=== PATIENT | female | born 1955 | race Caucasian/White ===

== ENCOUNTER 2018-11-22 11:05 | Emergency (ER) | payer OTHER ==
[2018-11-22] MEDS ORDERED: FAMOTIDINE 20 MG/2 ML VIAL IV ONE (11:37)
[2018-11-22] MEDS ORDERED: DIPHENHYDRAMINE 50 MG/ML VIAL ONE (11:37)
[2018-11-22] MEDS ORDERED: METHYLPREDNISOLONE 125 MG INJ ONE (11:37)
--- NOTE | 2018-11-22 12:15 | ER ---
Nurse's Notes [facility] Name: Galina Flannery Age: 62 yrs Sex: Female : 1955 Arrival Date: 11/22/2018 Time: 11:07 Bed 3 Private MD: Diagnosis: Insect bite of unspecified part of neck Presentation: 11/22 11:10 Presenting complaint: Patient states: pt had dental implants on Sunday and then got sv bitten by something while working in the yard on Sunday to the left side of the neck and the swelling has increased to the right side. "I'm feeling cloudy around the edges.". Transition of care: patient was not received from another setting of care. Onset: The symptoms/episode began/occurred suddenly, 2 day(s) ago. Anaphylaxis evaluation, no signs or symptoms of anaphylaxis were noted. Onset of symptoms was November 20, 2018. Risk Assessment: Do you want to hurt yourself or someone else? Patient reports no desire to harm self or others. Initial Sepsis Screen: Does the patient meet any 2 criteria? No. Patient's initial sepsis screen is negative. Does the patient have a suspected source of infection? No. Patient's initial sepsis screen is negative. Care prior to arrival: None. 11:10 Method Of Arrival: Ambulatory sv 11:10 Acuity: FLEX 2 sv Triage Assessment: 11:15 General: Appears in no apparent distress. comfortable, slender, Behavior is bp cooperative, appropriate for age, anxious. Pain: Denies pain. EENT: No deficits noted. Neuro: No deficits noted. Cardiovascular: No deficits noted. Respiratory: No deficits noted. GI: No signs and/or symptoms were reported involving the gastrointestinal system. : No signs and/or symptoms were reported regarding the genitourinary system. Derm: ERYTHEMA ON LEFT NECK AND MANDIBLE. Musculoskeletal: No deficits noted. Historical: - Allergies: 11:13 Bacitracin; sv - Home Meds: 11:13 atenolol 50 mg Oral tab [Active]; Clindamycin Oral [Active]; argon oil [Active]; sv valsartan 80 mg oral tab [Active]; - PMHx: 11:13 Hypertension; sv - Immunization history:: Adult Immunizations up to date. - Social history:: Smoking status: Patient/guardian denies using tobacco. - Ebola Screening: : No symptoms or risks identified at this time. Screenin:15 Abuse screen: Denies threats or abuse. Denies injuries from another. Nutritional bp screening: No deficits noted. Tuberculosis screening: No symptoms or risk factors identified. Fall Risk None identified. Assessment: 11:15 General: SEE TRIAGE NOTE. Respiratory: Airway is patent Respiratory effort is even, bp unlabored, Breath sounds are clear bilaterally. 12:29 Reassessment: PT D/C HOME AMBULATORY, DX WITH INSECT BITE. bp Vital Signs: 11:13 BP 200 / 101; Pulse 62; Resp 18; Temp 99; Pulse Ox 100% ; Weight 61.23 kg; Height 5 ft. sv 7 in. (170.18 cm); Pain 0/10; 11:43 BP 180 / 93; Pulse 70; Resp 16; Pulse Ox 100% ; bp 12:29 BP 140 / 79; Pulse 58; Resp 14; Temp 98; Pulse Ox 98% ; bp 11:13 Body Mass Index 21.14 (61.23 kg, 170.18 cm) sv ED Course: 11:07 Patient arrived in ED. mr 11:11 Triage completed. sv 11:13 Arm band placed on. sv 11:14 Herman Quinones, MARICRUZ is Primary Nurse. bp 11:15 Artur Massey NP is PHCP. pm1 11:15 Zhen Hatch MD is Attending Physician. pm1 11:15 Patient has correct armband on for positive identification. Bed in low position. Call bp light in reach. Side rails up X2. 11:30 Inserted saline lock: 22 gauge in right forearm, using aseptic technique. bp 12:30 No provider procedures requiring assistance completed. IV discontinued, intact, bp bleeding controlled, No redness/swelling at site. Pressure dressing applied. Administered Medications: 11:30 Drug: Pepcid 20 mg Route: PO; bp 12:31 Follow up: Response: Marked relief of symptoms bp 11:30 Drug: Benadryl 25 mg Route: IVP; Site: right forearm; bp 12:30 Follow up: Response: Marked relief of symptoms bp 11:30 Drug: SOLU-Medrol 125 mg Route: IVP; Site: right forearm; bp 12:30 Follow up: Response: Marked relief of symptoms bp Outcome: 12:14 Discharge ordered by . pm1 12:30 Discharged to home ambulatory. bp 12:30 Condition: stable 12:30 Discharge instructions given to patient, Instructed on discharge instructions, follow up and referral plans. medication usage, Demonstrated understanding of instructions, follow-up care, medications, Prescriptions given X 3. 12:36 Patient left the ED. eb Signatures: Yuly Cristobal RN RN sv Amy Leavitt mr Bryson, Artur, DEHYDRATION PLANT OPERATOR DEHYDRATION PLANT OPERATOR pm1 Herman Quinones RN RN [place] Corrections: (The following items were deleted from the chart) 11:13 11:10 Presenting complaint: Patient states: pt had dental implants on Sunday and then sv got bitten by something while working in the yard on Sunday to the left side of the neck and the swelling has increased to the right side. sv
--- NOTE | 2018-11-22 12:16 | EDPHYS ---
Physician Documentation [facility] Name: Galina Flannery Age: 62 yrs Sex: Female : 1955 Arrival Date: 11/22/2018 Time: 11:07 Bed 3 Private MD: ED Physician Zhen Hatch HPI: 11/22 11:21 This 62 yrs old Female presents to ER via Ambulatory with complaints of pm1 Allergic Reaction. 11:21 The patient presents with rash, of the neck. Onset: The symptoms/episode began/occurred pm1 2 day(s) ago. Associated signs and symptoms: Pertinent negatives: chest pain, dysphagia, fever, shortness of breath, swelling. Possible causes: Patient was working on her yard and felt a sudden stinging burn to the left side of her neck. At home the patient or guardian has treated the symptoms with nothing. Severity of symptoms: in the emergency department the symptoms are worse. The patient has not experienced similar symptoms in the past. The patient has not recently seen a physician. Historical: - Allergies: 11:13 Bacitracin; sv - Home Meds: 11:13 atenolol 50 mg Oral tab [Active]; Clindamycin Oral [Active]; argon oil [Active]; sv valsartan 80 mg oral tab [Active]; - PMHx: 11:13 Hypertension; sv - Immunization history:: Adult Immunizations up to date. - Social history:: Smoking status: Patient/guardian denies using tobacco. - Ebola Screening: : No symptoms or risks identified at this time. ROS: 11:21 Constitutional: Negative for fever, chills, and weight loss, Eyes: Negative for injury, pm1 pain, redness, and discharge, ENT: Negative for injury, pain, and discharge, Neck: Negative for injury, pain, and swelling, Cardiovascular: Negative for chest pain, palpitations, and edema, Respiratory: Negative for shortness of breath, cough, wheezing, and pleuritic chest pain, Abdomen/GI: Negative for abdominal pain, nausea, vomiting, diarrhea, and constipation, Back: Negative for injury and pain, MS/Extremity: Negative for injury and deformity. 11:21 Neuro: Negative for headache, weakness, numbness, tingling, and seizure. 11:21 Skin: Positive for rash, of the neck. Exam: 11:21 Constitutional: This is a well developed, well nourished patient who is awake, alert, pm1 and in no acute distress. Head/Face: Normocephalic, atraumatic. Eyes: Pupils equal round and reactive to light, extra-ocular motions intact. Lids and lashes normal. Conjunctiva and sclera are non-icteric and not injected. Cornea within normal limits. Periorbital areas with no swelling, redness, or edema. 11:21 Chest/axilla: Normal chest wall appearance and motion. Nontender with no deformity. No lesions are appreciated. Cardiovascular: Regular rate and rhythm with a normal S1 and S2. No gallops, murmurs, or rubs. Normal PMI, no JVD. No pulse deficits. Respiratory: Lungs have equal breath sounds bilaterally, clear to auscultation and percussion. No rales, rhonchi or wheezes noted. No increased work of breathing, no retractions or nasal flaring. Abdomen/GI: Soft, non-tender, with normal bowel sounds. No distension or tympany. No guarding or rebound. No evidence of tenderness throughout. Back: No spinal tenderness. No costovertebral tenderness. Full range of motion. 11:21 MS/ Extremity: Pulses equal, no cyanosis. Neurovascular intact. Full, normal range of motion. 11:21 Neck: External neck: is normal, rash, that is mild, of the right sternocleidomastoid and left sternocleidomastoid, urticarial appearring. 11:21 Skin: Appearance: normal except for affected area, consistent with urticaria, on the neck. 11:21 Neuro: Orientation: is normal, Motor: is normal, moves all fours. Vital Signs: 11:13 BP 200 / 101; Pulse 62; Resp 18; Temp 99; Pulse Ox 100% ; Weight 61.23 kg; Height 5 ft. sv 7 in. (170.18 cm); Pain 0/10; 11:43 BP 180 / 93; Pulse 70; Resp 16; Pulse Ox 100% ; bp 12:29 BP 140 / 79; Pulse 58; Resp 14; Temp 98; Pulse Ox 98% ; bp 11:13 Body Mass Index 21.14 (61.23 kg, 170.18 cm) sv MDM: 11:15 Patient medically screened. pm1 12:14 Data reviewed: vital signs. Data interpreted: Pulse oximetry: on room air is 100 %. pm1 Interpretation: normal. Counseling: I had a detailed discussion with the patient and/or guardian regarding: the historical points, exam findings, and any diagnostic results supporting the discharge/admit diagnosis, the need for outpatient follow up, to return to the emergency department if symptoms worsen or persist or if there are any questions or concerns that arise at home. 11/22 11:21 Order name: IV Saline Lock; Complete Time: 11:29 pm1 Administered Medications: 11:30 Drug: Pepcid 20 mg Route: PO; bp 12:31 Follow up: Response: Marked relief of symptoms bp 11:30 Drug: Benadryl 25 mg Route: IVP; Site: right forearm; bp 12:30 Follow up: Response: Marked relief of symptoms bp 11:30 Drug: SOLU-Medrol 125 mg Route: IVP; Site: right forearm; bp 12:30 Follow up: Response: Marked relief of symptoms bp Disposition: 16:04 Co-signature as Attending Physician, Zhen Hatch MD I agree with the assessment and kdr plan of care. Disposition: 11/22/18 12:14 Discharged to Home. Impression: Insect bite of unspecified part of neck. - Condition is Stable. - Discharge Instructions: Insect Bite, Rash. - Prescriptions for Benadryl 25 mg Oral Capsule - take 1 capsule by ORAL route every 6 hours As needed; 30 tablet. Pepcid 20 mg Oral Tablet - take 1 tablet by ORAL route every 12 hours for 10 days; 20 tablet. Medrol (Asher) 4 mg Oral Tablets, Dose Pack - take 1 tablet by ORAL route as directed - follow package instructions; 1 packet. - Medication Reconciliation Form, Thank You Letter, Antibiotic Education, Prescription Opioid Use, Work release form form. - Follow up: Emergency Department; When: As needed; Reason: Worsening of condition. Follow up: Private Physician; When: 2 - 3 days; Reason: Recheck today's complaints, Continuance of care, Re-evaluation by your physician. - Problem is new. - Symptoms have improved. Signatures: Yuly Cristobal RN RN sv Rittger, Kevin, MD MD kdr Marinas, Patrick, SNOW REMOVER SNOW REMOVER pm1 Herman Quinones RN RN [place] Corrections: (The following items were deleted from the chart) 12:36 12:14 11/22/2018 12:14 Discharged to Home. Impression: Insect bite of unspecified part eb of neck. Condition is Stable. Forms are Medication Reconciliation Form, Thank You Letter, Antibiotic Education, Prescription Opioid Use. Follow up: Emergency Department; When: As needed; Reason: Worsening of condition. Follow up: Private Physician; When: 2 - 3 days; Reason: Recheck today's complaints, Continuance of care, Re-evaluation by your physician. Problem is new. Symptoms have improved. pm1
== END 2018-11-22 12:36 | disposition home or self-care (01) ==
LOC: ER 11:05
DX: S10.96XA Insect bite of unspecified part of neck, initial encounter (principal); I10 Essential (primary) hypertension; W57.XXXA Bitten or stung by nonvenomous insect and other nonvenomous arthropods, initial encounter; Y93.89 Activity, other specified; Y92.007 Garden or yard of unspecified non-institutional (private) residence as the place of occurrence of the external cause; Z88.8 Allergy status to other drugs, medicaments and biological substances
CPT/HCPCS: 96375; 96374; 99283; J2930

== ENCOUNTER 2021-12-22 19:35 | Emergency (ER) | payer OTHER ==
--- OUTSIDE RECORDS SUMMARY | 2021-12-22 19:38 | XMS REPORT | Continuity of Care Document ---
:1955 Author Organization [facility] t Address [address] [place] [address] Care Team Providers Name Role Phone [place], Opal Attending Clinician Unavailable Eliecer Christensen DO Attending Clinician Sebas Cartagena MD Attending Clinician SEBAS CARTAGENA Attending Clinician Unavailable Payers Payer Name Policy Type Policy Number Effective Date Expiration Date S ource Problems Condition Condition Condition Status Onset Resolution Last Treating Co mments Source Name Details Category Date Date Treatment Clinician Date Perioral Perioral Disease Active 2011-03 Unive rs wrinkles wrinkles 0-03 ity of 00:00: [place] [id number] Medical Branch Contact Contact Disease Active Univers dermatitis dermatitis 9-20 it y of 00:00: [place] [facility] Rash Rash Disease Active Univers 9-09 ity of 00:00: [place] 00 [facility] Allergies, Adverse Reactions, Alerts Allergy Allergy Status Severity Reaction(s) Onset Inactive Treating Comm ents Source Name Type Date Date Clinician Nickel Propensi Active Rash Univers ty to 2-25 ity of adverse 00:00: [place] reaction 00 Medical Branch NICKEL DRUG Active Rash Univers INGREDI 2-25 ity of 00:00: [place] 00 [facility] Bacitrac Propensi Active Rash 2010-03 Univer s in ty to 0-21 ity of adverse 00:00: [place] reaction 00 Medical s Branch BACITRAC DRUG Active Rash 2010-03 Univers IN INGREDI 0-21 ity of 00:00: [place] 00 [facility] Branch NO KNOWN Drug Active Univers ALLERGIE Class ity of [facility] Lisinopr Adverse Active Info Not Commo n il Reaction Available [facility] Bacitrac Adverse Active Info Not Commo n in-Neomy Reaction Available Spi rit oliver-Poly - [facility] myxin [facility] Eritrean Adverse Active Info Not Commo n Reaction Available Spiri t - [facility] Sy Adverse Active Info Not Common Reaction Available [facility] Social History Social Habit Start Date Stop Date Quantity Comments Source Exposure to Not sure [facility] SARS-CoV-2 (event) [facility] Tobacco use and 2020-05-20 2020-05-20 Never used [facility] exposure 00:00:00 00:00:00 [facility] History of tobacco 2011-01-02 Smoker [facility] use 00:00:00 [facility] Sex Assigned At [birth year] [facility] 00:00:00 00:00:00 [facility] Smoking Status Start Date Stop Date Source Former smoker 2020-05-20 00:00:00 2020-05-20 00:00:00 [facility] Medications Ordered Filled Start Stop Current Ordering Indication Dosage Frequency Signature Comments Components Source Medication Medication Date Date Medication? Clinician (SIG) Name Name atenoloL 50 2019-03 Yes 50mg 50 mg. Univ ers mg tablet 04-22 ity of 00:00: [place] [facility] atenoloL 50 2019-03 Yes 50mg 50 mg. Univ ers mg tablet 04-22 ity of :: [place] [facility] atenoloL 50 2019-03 Yes 50mg 50 mg. Univ ers mg tablet 04-22 ity of 00:: [place] [facility] atenoloL 50 2019-03 Yes 50mg 50 mg. Univ ers mg tablet 04-22 ity of 00:00: [place] [facility] atenoloL 50 2019-03 Yes 50mg 50 mg. Univ ers mg tablet 04-22 ity of 00:00: [address] Branch Valsartan Valsartan 2018-0 Yes Opal 1 tablet Common 8-15 [facility] 00:00: - [facility] 00 [facility] Ocuvite Ocuvite Yes Opal not Common Lutein 25 Lutein 25 [place] defined S pirit - [facility] Atenolol Atenolol Yes Opal take 1 Comm on [place] tablet by [facility] mouth [facility] every day [facility] Aspirin Aspirin Yes Opal 2 tablets Com mon [facility] Vitamin C Vitamin C Yes Opal not Comm on [place] defined Spirit [facility] Vitamin E Vitamin E Yes Opal 1 capsule Common [facility] B-Complex B-Complex Yes Opal not Comm on [place] defined [facility] Qunol Qunol Yes Opal not Common CoQ10/Ubiqu CoQ10/Ubiqu [place] defined Spirit inol/Pierce inol/Pierce - [facility] Vital Signs Vital Name Observation Time Observation Value Comments Source Systolic blood 2020-05-20 19:13:00 170 mm[Hg] [facility] Diastolic blood 2020-05-20 19:13:00 101 mm[Hg] [facility] Heart rate 2020-05-20 19:05:00 59 /min [facility] Body height 2020-05-20 19:05:00 168.9 cm [facility] Body weight 2020-05-20 19:05:00 64.501 kg [facility] BMI 2020-05-20 19:05:00 22.61 kg/m2 [facility] Procedures Procedure Date / Time Performed Performing Clinician Sourc e XR KNEE <3 VW RIGHT 2020-05-20 18:49:07 Sebas Cartagena [facility] Encounters Start End Encounter Admission Attending Care Care Encounter Source Date/Time Date/Time Type Type Clinicians Facility Department ID 2021-08-[address] [facility] [id number] Common 15:51:01 Opal [facility] 2021-04-[address] [facility] [id number] Common 13:15:54 Opal [id number] [facility] 2021-04-20 Outpatient Hays, STLMLC STLMLC [id number] Common 13:08:48 Opal [id number] [facility] 2021-04-20 Outpatient Hays, STLMLC STLMLC [id number] Common 12:56:05 Opal [id number] [facility] 2021-04-20 Outpatient Hays, STLMLC STLMLC [id number] Common 12:45:39 Opal [id number] [facility] 2021-04-20 Outpatient Hays, STLMLC STLMLC [id number] Common 12:19:52 Opal [id number] [facility] 2021-09-09 2021-09-09 ambulatory STLMLC STLMLC [id number] Common 00:00:00 00:00:00 [facility] 2021-09-09 2021-09-09 ambulatory STLMLC STLMLC [id number] Common 00:00:00 00:00:00 [facility] 2021-09-09 2021-09-09 ambulatory STLMLC STLMLC [id number] Common 00:00:00 00:00:00 [facility] 2021-02-21 2021-02-21 ambulatory STLMLC STLMLC [id number] Common 00:00:00 00:00:00 [facility] 2020-09-09 2020-09-09 Outpatient STLMLC STLMLC [id number] Common 00:00:00 00:00:00 [facility] 2020-08-24 2020-08-24 Outpatient STLMLC STLMLC [id number] Common 00:00:00 00:00:00 [facility] 2020-08-10 2020-08-10 Outpatient STLMLC STLMLC [id number] Common 00:00:00 00:00:00 [facility] 2020-08-09 2020-08-09 Outpatient STLMLC STLMLC [id number] Common 00:00:00 00:00:00 [facility] 2020-08-02 2020-08-02 Outpatient STLMLC STLMLC [id number] Common 00:00:00 00:00:00 [facility] 2020-07-19 2020-07-19 Outpatient STLMLC STLMLC [id number] Common 00:00:00 00:00:00 [facility] 2020-07-19 2020-07-19 Outpatient STLMLC STLMLC [id number] Common 00:00:00 00:00:00 [facility] 2020-06-17 2020-06-17 Outpatient STLMLC STLMLC [id number] Common 00:00:00 00:00:00 [facility] 2020-05-31 2020-05-[address] [facility] [id number] 00:00:00 00:00:00 Outreach [facility] [id number] i ty of [facility] [id number] [place] [facility] [id number] Sc dical [address] 2020-05-26 2020-05-26 Outpatient STLMLC STLMLC [id number] Common 00:00:00 00:00:00 [facility] 2020-05-21 2020-05-21 Telephone [facility] [id number] Univers 00:00:00 00:00:00 Sebas [address] [facility] [id number] it y of Surgical [id number] [place] as Specialti [id number] Me dical es [address] [place] 2020-05-20 2020-05-[address] [facility] [id number] Univers 12:32:06 23:59:00 Encounter Sebas Tracey [id number] it[id number] [place] [id number] [facility] isabell 807 [place] 2020-05-20 2020-05-20 Office [facility] [id number] Univers 12:52:47 13:40:50 Visit Sebas Cano [id number] y of Surgical [id number] [place] as Specialti [id number] Sc dical es [address] [place] 2020-05-20 2020-05-20 Outpatient Almas CARTAGENA [facility] [id number] Univers 00:00:00 00:00:00 SEBAS lewis [facility] 2020-04-23 2020-04-23 Outpatient STLMLC STLMLC [id number] Common 00:00:00 00:00:00 [facility] 2020-04-07 2020-04-07 Outpatient STLMLC STLMLC [id number] Common 00:00:00 00:00:00 [facility] 2019-11-12 2019-11-12 Outpatient Brian Torrest [id number] Common 14:40:00 14:40:[address] [facility] [address] [facility] 2018-11-07 2018-11-07 Outpatient [place] [id number] Common 14:00:00 14:00:[address] [facility] [address] [facility] Results Test Test Test Results Result Source Description Time Comments Comments XR KNEE <3 VW 2020-04- HISTORY: ?Pain. FINDINGS: [facility] AP standing views of both [facility] 18:53:59 right and left knees and Branch lateralstanding views of right knee showed no acute fracture or dislocation.Moderate degenerative arthritis of right patellofemoral joint noted.Slightly less severe degenerative arthritis noted in the medial compartmentof right knee and relatively minimal degenerative changes in the lateralcompartment right knee. No calcification appreciated in the meniscalfibrocartilage. No significant right knee joint effusion or aggressive bonelesions seen. CONCLUSIONS: Right knee degenerative osteoarthritis, more severe affectingpatellofemoral joint. [facility], Radiant Results Inft 05/20/2020 12:55 PM CSTHISTORY: Pain.FINDINGS: AP standing views of both right and left knees and lateralstanding views of right knee showed no acute fracture or dislocation.Moderate degenerative arthritis of right patellofemoral joint noted.Slightly less severe degenerative arthritis noted in the medial compartmentof right knee and relatively minimal degenerative changes in the lateralcompartment right knee. No calcification appreciated in the meniscalfibrocartilage. No significant right knee joint effusion or aggressive bonelesions seen.CONCLUSIONS: Right knee degenerative osteoarthritis, more severe affectingpatellofemoral joint.
[2021-12-22 20:10] LABS: Absolute Lymphocytes (CBC) 2.2 K/uL (0.7-4.9); Lymphocytes % 21.6 % (15.3-44.8); MCV 92.5 fL (80-100); MPV 7.7 fL (7.6-11.3); RBC Red Blood Cell Count 3.78 M/uL (3.86-4.86)
[2021-12-22 20:27] LABS: Potassium 3.7 mmol/L (3.5-5.1); Troponin High Sensitivity 6.4 pg/mL (<58.9)
--- NOTE | 2021-12-22 20:40 | RAD REPORT ---
EXAM DESCRIPTION: CT - Head Brain Wo Cont - 12/22/2021 8:24 pm CLINICAL HISTORY: HTN, blurred vision COMPARISON: No comparisons TECHNIQUE: Axial 5 mm thick images of the head were obtained without IV contrast. All CT scans are performed using dose optimization technique as appropriate and may include automated exposure control or mA/KV adjustment according to patient size. FINDINGS: No intracranial hemorrhage, mass, edema or shift of mid-line structures. No acute infarcti on changes seen. Atrophy is mild. Chronic ischemic changes minimal. Ventricles are normal. Mastoid air cells and visualized portions of the paranasal sinuses are clear. No acute bony findings. IMPRESSION: Negative non-contrast CT head examination for acute finding.
--- NOTE | 2021-12-22 21:24 | RAD REPORT ---
EXAM DESCRIPTION: RAD - Chest Single View - 12/22/2021 8:59 pm CLINICAL HISTORY: HTN COMPARISON: None TECHNIQUE: AP portable chest image was obtained 12/22/2021 8:59 pm . FINDINGS: No focal infiltrate or suspicious mass. Benign-appearing parenchymal or pleural calcificat ions seen. Heart size is upper normal. Vasculature within normal limits. No measurable pleural effusion and no pneumothorax. No acute bony abnormality seen. No acute aortic findings suspected. IMPRESSION: No acute cardiopulmonary process.
--- NOTE | 2021-12-22 21:29 | ER ---
Nurse's Notes [facility] Name: Galina Flannery Age: 65 yrs Sex: Female : 1955 Arrival Date: 12/22/2021 Time: 19:38 Bed 4 Private MD: Diagnosis: Essential (primary) hypertension Presentation: 12/22 19:44 Chief complaint: Patient states: vein procedure Sunday; "pumped me full of something" [facility] and ever since I've had high blood pressure. My vision is blurry the last couple days; got some clonidine back in 2014 from the ER and has been taking it at home the last two nights - took one prior to arrival. Pt also takes atenolol daily. Coronavirus screen: Vaccine status: Patient reports receiving the 2nd dose of the covid vaccine. Client denies travel out of the [place] in the last 14 days. Ebola Screen: Patient negative for fever greater than or equal to 101.5 degrees Fahrenheit, and additional compatible Ebola Virus Disease symptoms Patient denies exposure to infectious person. No symptoms or risks identified at this time. Initial Sepsis Screen: Does the patient meet any 2 criteria? No. Patient's initial sepsis screen is negative. Does the patient have a suspected source of infection? No. Patient's initial sepsis screen is negative. Risk Assessment: Do you want to hurt yourself or someone else? Patient reports no desire to harm self or others. Onset of symptoms was December 20, 2021. 19:44 Method Of Arrival: Ambulatory [facility] 19:44 Acuity: FLEX 3 jh5 Triage Assessment: 19:47 General: Appears in no apparent distress. slender, well groomed, well developed, [facility] Behavior is calm, cooperative, appropriate for age. Pain: Denies pain. Historical: - Allergies: 19:47 BACITRACIN; 5 - PMHx: 19:47 Hypertension; 5 - Immunization history:: Adult Immunizations up to date. - Social history:: Smoking status: Patient/guardian denies using tobacco, the patient reports quitting approximately 2011 years ago. - Family history:: not pertinent. - Hospitalizations: : No recent hospitalization is reported. Screenin:55 Abuse screen: Denies threats or abuse. Denies injuries from another. Nutritional 5 screening: No deficits noted. Tuberculosis screening: No symptoms or risk factors identified. Fall Risk None identified. Assessment: 19:55 General: Appears in no apparent distress. comfortable, Behavior is calm, cooperative, tw5 Received care of pt from [facility] via . No distress noted. AAO x4. PT reports that she had a vein surgery on Sunday and ever since then her BP has been elevated at night. PT denies CP, SOB, headache. PT reports intermittent numbness in her left hand.. Pain: Denies pain. Cardiovascular: No deficits noted. Denies chest pain, diaphoresis, fatigue, lightheadedness, nausea, palpitations, shortness of breath, syncope. Respiratory: No deficits noted. Airway is patent Breath sounds are clear bilaterally. GI: Patient currently denies abdominal pain, constipation, diarrhea, nausea, vomiting. : Denies burning with urination, inability to void, incontinence, pain. Vital Signs: 19:44 BP 172 / 94; Pulse 65; Resp 18; Temp 98.6; Pulse Ox 100% ; Weight 61.23 kg; Height 5 [facility] ft. 7 in. (170.18 cm); Pain 0/10; 20:00 BP 171 / 95; Pulse 60; Resp 18; Pulse Ox 99% ; tw5 21:30 BP 132 / 76; Pulse 62; Resp 18; Pulse Ox 96% ; tw5 21:49 BP 145 / 76; Pulse 59; Resp 18; Pulse Ox 99% ; tw5 19:44 Body Mass Index 21.14 (61.23 kg, 170.18 cm) 5 ED Course: 19:38 Patient arrived in ED. dt4 19:38 Alex Cowan MD is Attending Physician. rn 19:47 Triage completed. 5 19:47 Arm band placed on left wrist. 5 19:53 Tammi Da Silva, MARICRUZ is Primary Nurse. kb3 19:55 Patient has correct armband on for positive identification. Placed in gown. Bed in low tw5 position. Call light in reach. Side rails up X2. Client placed on continuous cardiac and pulse oximetry monitoring. NIBP monitoring applied. vehicle monitor technician on. Warm blanket given. 19:55 No provider procedures requiring assistance completed. Inserted saline lock: 20 gauge tw5 in right forearm, using aseptic technique. Blood collected. 20:[address] tw5 20:26 CT Head Brain wo Cont In Process Unspecified. EDMS 21:00 XRAY Chest (1 view) In Process Unspecified. EDMS 21:57 IV discontinued, intact, bleeding controlled, No redness/swelling at site. tw5 Administered Medications: No medications were administered Medication: 19:55 VIS not applicable for this client. tw5 Outcome: 21:28 Discharge ordered by . rn 21:57 Discharged to home ambulatory. tw5 21:57 Condition: improved 21:57 Discharge instructions given to patient, Instructed on discharge instructions, follow up and referral plans. medication usage, Demonstrated understanding of instructions, follow-up care, medications. 21:57 Patient left the ED. tw5 Signatures: Dispatcher [employer] EDID Alex Cowan MD MD rn Wood, Tiffany tw5 Kaykay Curry RN RN jh5 Tammi Da Silva RN RN kb3 Cony Espinal dt4 Corrections: (The following items were deleted from the chart) 21:57 19:55 Inserted saline lock: 20 gauge in right antecubital area, using aseptic tw5 technique. Blood collected. tw5
--- NOTE | 2021-12-22 21:29 | EDPHYS ---
Physician Documentation [facility] Name: Galina Flannery Age: 65 yrs Sex: Female : 1955 Arrival Date: 12/22/2021 Time: 19:38 Bed 4 Private MD: ED Physician Alex Cowan HPI: 12/22 20:01 This 65 yrs old Female presents to ER via Ambulatory with complaints of High Blood rn Pressure. 20:01 The patient has elevated blood pressure and discovered this at home. Onset: The rn symptoms/episode began/occurred 3 day(s) ago. Modifying factors: The symptoms are aggravated by recent vein procedure. Associated signs and symptoms: Pertinent positives: blurred vision and anxiety. 20:18 Severity of symptoms: At its worst the blood pressure was moderate, in the emergency rn department the blood pressure is improved. The patient has experienced similar episodes in the past. The patient has been recently seen by a physician:. Pt reports vein procedure Sunday, since then BP has been elevated, highest was 190s systolic, had old clonidine and was worried about numbers so taking clonidine. Otherwise denies headache/focal neuro complaint/chest pain/sob/abd pain. No syncope. . Historical: - Allergies: 19:47 BACITRACIN; jh5 - PMHx: 19:47 Hypertension; jh5 - Immunization history:: Adult Immunizations up to date. - Social history:: Smoking status: Patient/guardian denies using tobacco, the patient reports quitting approximately 2011 years ago. - Family history:: not pertinent. - Hospitalizations: : No recent hospitalization is reported. ROS: 20:18 Constitutional: Negative for fever, chills, and weight loss, Eyes: Negative for injury, rn pain, redness, and discharge, Neck: Negative for injury, pain, and swelling, Cardiovascular: Negative for chest pain, palpitations, and edema, Respiratory: Negative for shortness of breath, cough, wheezing, and pleuritic chest pain, Abdomen/GI: Negative for abdominal pain, nausea, vomiting, diarrhea, and constipation, Back: Negative for injury and pain, MS/Extremity: Negative for injury and deformity, Skin: Negative for injury, rash, and discoloration, Neuro: Negative for headache, weakness, numbness, tingling, and seizure. Exam: 20:18 Constitutional: This is a well developed, well nourished patient who is awake, alert, rn and in no acute distress. Appears anxious. Head/Face: Normocephalic, atraumatic. Eyes: Periorbital areas with no swelling, redness, or edema. Cardiovascular: Regular rate and rhythm . No pulse deficits. Respiratory: No increased work of breathing, no retractions or nasal flaring. Abdomen/GI: Soft, non-tender, with normal bowel sounds. No distension or tympany. No guarding or rebound. No evidence of tenderness throughout. Skin: Warm, dry MS/ Extremity: Pulses equal, no cyanosis. Neuro: Awake and alert, GCS 15, oriented to person, place, time, and situation. Cranial nerves II-XII grossly intact. Motor strength 5/5 in all extremities. Sensory grossly intact. Cerebellar exam normal. Normal gait. 20:46 ECG was reviewed by the Attending Physician. rn Vital Signs: 19:44 BP 172 / 94; Pulse 65; Resp 18; Temp 98.6; Pulse Ox 100% ; Weight 61.23 kg; Height 5 5 ft. 7 in. (170.18 cm); Pain 0/10; 20:00 BP 171 / 95; Pulse 60; Resp 18; Pulse Ox 99% ; tw5 21:30 BP 132 / 76; Pulse 62; Resp 18; Pulse Ox 96% ; tw5 21:49 BP 145 / 76; Pulse 59; Resp 18; Pulse Ox 99% ; tw5 19:44 Body Mass Index 21.14 (61.23 kg, 170.18 cm) [facility] MDM: 19:38 Patient medically screened. rn 21:27 Differential diagnosis: Malignant HTN, hypertension, rebound from clonidine, medication rn side effect. Data reviewed: vital signs, nurses notes, lab test result(s), EKG, radiologic studies, CT scan, plain films, and as a result, I will discharge patient. Counseling: I had a detailed discussion with the patient and/or guardian regarding: the historical points, exam findings, and any diagnostic results supporting the discharge/admit diagnosis, lab results, radiology results, the need for outpatient follow up, to return to the emergency department if symptoms worsen or persist or if there are any questions or concerns that arise at home. Counseling: I had a detailed discussion with the patient and/or guardian regarding: the presence of at least one elevated blood pressure reading (>120/80) during this emergency department visit. Response to treatment: the patient's symptoms have mildly improved after treatment, and as a result, I will discharge patient. Special discussion: I discussed with the patient/guardian in detail that at this point there is no indication for admission to the hospital. It is understood, however, that if the symptoms persist or worsen the patient needs to return immediately for re-evaluation. Based on the history and exam findings, there is no indication for further emergent testing or inpatient evaluation. I discussed with the patient/guardian the need to see the primary care provider for further evaluation of the symptoms. Special discussion: I have referred the patient to see his PCP for further evaluation of high blood pressure. ED course: No evidence of end-organ damage, neg ct head and cxr, no acute ischemia on ECG. Will dc home with BP monitoring and PCP for further management.. 12/22 20:00 Order name: Basic Metabolic Panel; Complete Time: 12/22 20:00 Order name: CBC with Diff; Complete Time: 12/22 20:00 Order name: NT PRO-BNP; Complete Time: 12/22 20:00 Order name: Troponin HS; Complete Time: 12/22 20:00 Order name: XRAY Chest (1 view); Complete Time: 12/22 20:00 Order name: CT Head Brain wo Cont; Complete Time: 12/22 20:00 Order name: EKG; Complete Time: 12/22 20:00 Order name: Cardiac monitoring; Complete Time: 12/22 20:00 Order name: EKG - Nurse/Tech; Complete Time: 12/22 20:00 Order name: IV Saline Lock; Complete Time: 12/22 20:00 Order name: Labs collected and sent; Complete Time: 12/22 20:00 Order name: O2 Per Protocol; Complete Time: 12/22 20:00 Order name: O2 Sat Monitoring; Complete Time: : rn EC:46 Rate is 53 beats/min. Rhythm is regular. QRS [place] is Normal. [place] interval is normal. QRS rn interval is normal. QT interval is normal. No Q waves. T waves are Normal. No ST changes noted. Clinical impression: Sinus bradycardia. Interpreted by me. Reviewed by me. 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
[2021-12-23 21:34] VITALS: TEMP 98.6
[2021-12-23 21:38] VITALS: BP 145/76; O2SAT 99
--- NOTE | 2021-12-25 07:48 | EKG ---
Test Date: 2021-12-22 Test Time: 20:15:54 Electronic Design Engineer: CHEN MEASUREMENT RESULTS: Intervals: Rate: 53 WV: 188 QRSD: 88 QT: 420 QTc: 394 [place]: P: 27 WV: 188 QRS: 18 T: 41 INTERPRETIVE STATEMENTS: Sinus bradycardia with sinus arrhythmia Otherwise normal ECG Compared to ECG 01/15/2015 15:26:27 No significant changes Electronically Signed On 12-25-21 07:44:41 CDT by Jameson Aguilera
== END 2021-12-22 21:57 | disposition home or self-care (01) ==
LOC: ER 19:35
DX: I10 Essential (primary) hypertension (principal); Z88.1 Allergy status to other antibiotic agents
CPT/HCPCS: 36415; 70450; 71045; 80048; 83880; 84484; 85025; 93005; 99285

== ENCOUNTER 2021-12-25 13:07 | Observation (INO) | payer OTHER ==
--- OUTSIDE RECORDS SUMMARY | 2021-12-25 13:11 | XMS REPORT | Continuity of Care Document ---
:1955 Author Organization [facility] t Address [address] [place] [address] [address] [place] [address] Care Team Providers Name Role Phone [place], Opal Attending Clinician Unavailable Eliecer Christensen DO [...] rs wrinkles wrinkles 0-03 ity of 00:00: [place] [id number] Medical Branch Contact Contact Disease Active Univers dermatitis dermatitis 9-20 it y of 00:00: [place] [id number] Medical Branch Rash Rash Disease Active Univers 9-09 ity of 00:00: [place] 00 Medical Branch Allergies, Adverse Reactions, Alerts Allergy Allergy Status Severity Reaction(s) Onset Inactive Treating Comm ents Source Name Type Date Date Clinician Nickel Propensi Active Rash Univers ty to 2-25 ity of adverse 00:00: [place] reaction 00 Medical Branch NICKEL DRUG Active Rash Univers INGREDI 2-25 ity of 00:00: [place] 00 Medical Branch Bacitrac Propensi Active Rash 2010-03 Univer s in ty to 0-21 ity of adverse 00:00: [place] reaction 00 [facility] s Branch BACITRAC DRUG Active Rash 2010-03 Univers IN INGREDI 0-21 ity of 00:00: [place] 00 Medical Branch Lisinopr Adverse Active Info Not Commo n il Reaction Available [facility] Bacitrac Adverse Active Info Not Commo n in-Neomy Reaction Available Spi rit o[facility] - [facility] myxin [facility] Sammarinese Adverse Active Info Not Commo n Reaction Available [facility] Sy Adverse Active Info Not Common Reaction Available [facility] NO KNOWN Drug Active Univers ALLERGIE Class ity of S [facility] Social History Social Habit Start Date Stop Date Quantity Comments Source Exposure to Not sure [facility] SARS-CoV-2 (event) [facility] Tobacco use and 2020-05-20 2020-05-20 Never used [facility] exposure 00:00:00 00:00:00 [facility] History of tobacco 2011-01-[address] [facility] use 00:00:00 [facility] Sex Ass[birth year] [facility] 00:00:00 00:00:00 [facility] Smoking Status Start Date Stop Date Source Former smoker 2020-05-20 00:00:00 2020-05-20 00:00:00 [facility] Medications Ordered Filled Start Stop Current Ordering Indication Dosage Frequency Signature Comments Components Source Medication Medication Date Date Medication? Clinician (SIG) Name Name atenoloL 50 2019-03 Yes 50mg 50 mg. Univ ers mg tablet 04-22 ity of 00:00: [place] [facility] atenoloL 50 2019-03 Yes 50mg 50 mg. Univ ers mg tablet 04-22 ity of 00:00: [place] [facility] atenoloL 50 2019-03 Yes 50mg 50 mg. Univ ers mg tablet 04-22 ity of 00:00: [place] [facility] atenoloL 50 2019-03 Yes 50mg 50 mg. Univ ers mg tablet 04-22 ity of 00:00: [place] [facility] atenoloL 50 2019-03 Yes 50mg 50 mg. Univ ers mg tablet 04-22 ity of 00:00: [address] Branch Valsartan Valsartan 2018-0 Yes Opal 1 tablet Common 8-15 [place] [facility] 00:00: - [facility] 00 [facility] Ocuvite Ocuvite Yes Opal not Common Lutein 25 Lutein 25 [place] defined S pirit - [facility] Atenolol Atenolol Yes Opal take 1 Comm on [place] tablet by [facility] mouth [facility] every day [facility] Aspirin Aspirin Yes Opal 2 tablets Com mon [place] [facility] Vitamin C Vitamin C Yes Opal not Comm on [place] defined Spirit [facility] Vitamin E Vitamin E Yes Opal 1 capsule Common [place] Spirit [facility] B-Complex B-Complex Yes Opal not Comm on [place] defined [facility] Qunol Qunol Yes Opal not Common CoQ10/Ubiqu CoQ10/Ubiqu [place] defined Spirit inol/Pierce inol/Pierce - [facility] Vital Signs Vital Name Observation Time Observation Value Comments Source Systolic blood 2020-05-20 19:13:00 170 mm[Hg] [facility] Diastolic blood 2020-05-20 19:13:00 101 mm[Hg] [facility] Heart rate 2020-05-20 19:05:00 59 /min [facility] Body height 2020-05-20 19:05:00 168.9 cm [facility] Body weight 2020-05-20 19:05:00 64.501 kg [facility] BMI 2020-05-20 19:05:00 22.61 kg/m2 [facility] Procedures Procedure Date / Time Performed Performing Clinician Sourc e XR KNEE <3 VW RIGHT 2020-05-20 18:49:07 Sebas Cartagena [facility] Encounters Start End Encounter Admission Attending Care Care Encounter Source Date/Time Date/Time Type Type Clinicians Facility Department ID 2021-08-11 Outpatient GONZALO Key [facility] [id number] Common 15:51:01 Opal [facility] 2021-04-20 Outpatient GONZALO Key [facility] [id number] Common 13:15:54 Opal [id number] [facility] 2021-04-20 Outpatient [place], STLMLC STLMLC [id number] Common 13:08:48 Opal [id number] [facility] 2021-04-20 Outpatient [place], STLMLC STLMLC [id number] Common 12:56:05 Opal [id number] [facility] 2021-04-20 Outpatient [place], STLMLC STLMLC [id number] Common 12:45:39 Opal [id number] [facility] 2021-04-20 Outpatient [place], STLMLC STLMLC [id number] Common 12:19:52 Opal [id number] [facility] 2021-09-09 2021-09-09 ambulatory STLMLC STLMLC [id number] Common 00:00:00 00:00:00 [facility] 2021-09-09 2021-09-09 ambulatory STLMLC STLMLC [id number] Common 00:00:00 00:00:00 [facility] 2021-09-09 2021-09-09 ambulatory STLMLC STLMLC [id number] Common 00:00:00 00:00:00 [facility] 2021-02-21 2021-02-21 ambulatory STLMLC STLMLC [id number] Common 00:00:00 00:00:00 [facility] 2020-09-09 2020-09-09 Outpatient STLMLC STLMLC [id number] Common 00:00:00 00:00:00 [facility] 2020-08-24 2020-08-24 Outpatient STLMLC STLMLC [id number] Common 00:00:00 00:00:00 [facility] 2020-08-10 2020-08-10 Outpatient STLMLC STLMLC [id number] Common 00:00:00 00:00:00 [facility] 2020-08-09 2020-08-09 Outpatient STLMLC STLMLC [id number] Common 00:00:00 00:00:00 [facility] 2020-08-02 2020-08-02 Outpatient STLMLC STLMLC [id number] Common 00:00:00 00:00:00 [facility] 2020-07-19 2020-07-19 Outpatient STLMLC STLMLC [id number] Common 00:00:00 00:00:00 [facility] 2020-07-19 2020-07-19 Outpatient STLMLC STLMLC [id number] Common 00:00:00 00:00:00 [facility] 2020-06-17 2020-06-17 Outpatient STLMLC STLMLC [id number] Common 00:00:00 00:00:00 [facility] 2020-05-31 2020-05-31 [facility] [id number] 00:00:00 00:00:00 Outreach [facility] [id number] i ty of [facility] [id number] [place] [facility] [id number] Co dical [address] 2020-05-26 2020-05-26 Outpatient STLMLC STLMLC [id number] Common 00:00:00 00:00:00 [facility] 2020-05-21 2020-05-21 Telephone [facility] [id number] Univers 00:00:00 00:00:00 Sebas Holland [facility] [id number] it y of Surgical [id number] [place] as Specialti [id number] Me dical es [address] [place] 2020-05-20 2020-05-20 [facility] [id number] Univers 12:32:06 23:59:00 Encounter Sebas Tracey [id number] ity [id number] [place] [id number] [facility] isabell [address] 2020-05-20 2020-05-20 Office [facility] [id number] Univers 12:52:47 13:40:50 Visit Sebas Cano [id number] y of Surgical [id number] Nakul as Specialti [id number] Co dical es [address] [place] 2020-05-20 2020-05-20 Outpatient Almas CARTAGENA [facility] [id number] Univers 00:00:00 00:00:00 SEBAS lewis [facility] 2020-04-23 2020-04-23 Outpatient STLMLC STLMLC [id number] Common 00:00:00 00:00:00 [facility] 2020-04-07 2020-04-07 Outpatient STLMLC STLMLC [id number] Common 00:00:00 00:00:00 [facility] 2019-11-12 2019-11-12 Outpatient Brian Torrest [id number] Common 14:40:00 14:40:00 [facility] [address] [facility] 2018-11-07 2018-11-07 Outpatient [place] [facility] [id number] Common 14:00:00 14:00:00 [facility] [address] [facility] Results Test Test Test Results Result Source Description Time Comments Comments XR KNEE <3 VW 2020-04- HISTORY: ?Pain. FINDINGS: [facility] AP standing views of both [facility] 18:53:59 right and left knees and Branch [...] knee degenerative osteoarthritis, more severe affectingpatellofemoral joint. [facility] Results Inft 05/20/2020 12:55 PM CSTHISTORY: [...]
[2021-12-25 13:44] LABS: Absolute Lymphocytes (CBC) 1.9 K/uL (0.7-4.9); Hematocrit 38.8 % (36.0-45.0); Lymphocytes % 24.1 % (15.3-44.8); MCV 94.9 fL (80-100); MPV 7.9 fL (7.6-11.3); RBC Red Blood Cell Count 4.08 M/uL (3.86-4.86)
[2021-12-25 13:51] LABS: Protime INR 1.06
--- NOTE | 2021-12-25 14:03 | RAD REPORT ---
EXAM DESCRIPTION: CT - Ct Stroke Brain Wo Cont - 12/25/2021 1:57 pm CLINICAL HISTORY: Neuro deficit, acute, stroke suspected Headache, drowsiness, CVA symptomology COMPARISON: Head Brain Wo Cont dated 12/22/2021 TECHNIQUE: All CT scans are performed using dose optimization technique as appropriate and may inclu de automated exposure control or mA/KV adjustment according to patient size. FINDINGS: No intracranial hemorrhage, hydrocephalus or extra-axial fluid collection.No areas of brai n edema or evidence of midline shift. The paranasal sinuses and mastoids are clear. The calvarium is intact. IMPRESSION: No acute intracranial abnormality. If there is continued clinical concern for CVA, MR imaging of the brain would be recommended. The findings were discussed with doctor Gonzalez in the emergency room on 12/25/2021 at 1:30 p.m. by telephone.
[2021-12-25] MEDS ORDERED: HYDRALAZINE HCL 10 MG TABLET ONE (14:16)
[2021-12-25] MEDS ORDERED: ASPIRIN 81 MG CHEWABLE TABLET ONE (14:16)
[2021-12-25] MEDS ORDERED: NA CHLORIDE 0.9% 1,000 ML ONE (14:17)
[2021-12-25] MEDS ORDERED: FOLIC ACID 5 MG/ML VIAL ONE (14:17)
[2021-12-25] MEDS ORDERED: HYDRALAZINE HCL 20 MG/ML VIAL ONE (14:17)
[2021-12-25 14:48] LABS: Urine Blood Trace-lysed (Negative); Urine Glucose Negative (Negative); Urine Protein Negative (Negative)
[2021-12-25 15:07] LABS: SARS-CoV-2 Antigen Rapid Res Negative (Negative)
--- NOTE | 2021-12-25 16:04 | ER ---
Nurse's Notes [facility] Name: Galina Flannery Age: 66 yrs Sex: Female : 1955 Arrival Date: 12/25/2021 Time: 13:09 Bed 16 Private MD: Diagnosis: Essential (primary) hypertension;Occlusion and stenosis of bilateral carotid arteries;Weakness;Transient cerebral ischemic attack, unspecified Presentation: 12/25 13:18 Chief complaint: Patient states: BP at home today was 198/90; denies CP or SOB, states vg1 nausea, blurred vision and "head pressure"; stated "slight weakness" to Left arm. Coronavirus screen: Vaccine status: Patient reports receiving the 2nd dose of the covid vaccine. Client denies travel out of the [place] in the last 14 days. Ebola Screen: Patient negative for fever greater than or equal to 101.5 degrees Fahrenheit, and additional compatible Ebola Virus Disease symptoms Patient denies exposure to infectious person. Initial Sepsis Screen: Does the patient meet any 2 criteria? No. Patient's initial sepsis screen is negative. Does the patient have a suspected source of infection? No. Patient's initial sepsis screen is negative. Risk Assessment: Do you want to hurt yourself or someone else? Patient reports no desire to harm self or others. Onset of symptoms was December 25, 2021 at 09:00. 13:18 Method Of Arrival: Wheelchair vg1 13:18 Acuity: FLEX 2 vg1 Triage Assessment: 13:20 General: Appears in no apparent distress. uncomfortable, Behavior is calm, cooperative. vg1 Pain: Complains of pain in head. Neuro: Level of Consciousness is awake, alert, obeys commands, Oriented to person, place, time, situation, Reports blurred vision headache weakness in left arm. Cardiovascular: Patient's skin is warm and dry. 13:20 Neuro: Product Expert are equal bilaterally Moves all extremities. Weakness in left arm(s) vg1 Speech is normal, Facial symmetry appears normal. 13:46 The onset of the patients symptoms was December 25, 2021 at 09:00. jl7 Historical: - Allergies: 13:20 BACITRACIN; vg1 - PMHx: 13:20 Hypertension; vg1 - Immunization history:: Client reports receiving the 2nd dose of the Covid vaccine. - Social history:: Smoking status: Patient/guardian denies using tobacco, the patient reports quitting approximately 16 years ago. Screenin:42 Abuse screen: Denies threats or abuse. Denies injuries from another. Nutritional bp screening: No deficits noted. Tuberculosis screening: No symptoms or risk factors identified. Fall Risk None identified. Assessment: 13:30 VAN Scoring: Arm Drift: Patients demonstrates NO arm weakness. Patient is VAN Negative. jl7 The patient has not been NPO before screening. The patient is currently on the following diet: Home The patient is alert, and able to follow commands. The patient does not exhibit slurred or garbled speech. The patient is not exhibiting difficulty speaking. The patient does not exhibit difficulty understanding words. The patient is able to swallow own secretions with no drooling or need for suction. Patient tolerated one teaspoon of water. No drooling, immediate coughing, gurgling, or clearing of the throat was noted. The patient tolerated 90mL of water. No drooling, immediate coughing, gurgling, or clearing of the throat was noted. The patient passed the bedside swallow screening. Oral medications may be given as ordered. Contact Physician for further diet orders. Provider notified of bedside swallow screening results: Gt Gonzalez MD. TNKase (Tenecteplase) Screening: Contraindications: Rapidly improving condition or minor deficit: Yes. 13:31 Reassessment: Pt reports intermittent left arm "heaviness" x 1 week. jl7 14:41 Reassessment: No changes from previously documented assessment. Patient and/or family bp updated on plan of care and expected duration. Pain level reassessed. 16:03 Reassessment: No changes from previously documented assessment. Patient and/or family bp updated on plan of care and expected duration. Pain level reassessed. 16:34 Reassessment: PT RETURNED FROM CT. bp 19:00 VAN Scoring: Arm Drift: Patients demonstrates NO arm weakness. Patient is VAN Negative. ke1 Visual Disturbance: No visual disturbance noted. Aphasia: No aphasia noted. 20:22 Reassessment: report given to vanessa. ke1 Vital Signs: 13:18 BP 181 / 118; Pulse 58; Resp 17; Temp 99.0(TE); Pulse Ox 100% on R/A; Weight 62.14 kg; vg1 Height 5 ft. 7 in. (170.18 cm); Pain 6/10; 14:42 BP 157 / 84; Pulse 62; Resp 15; Pulse Ox 100% ; bp 16:02 BP 129 / 74; Pulse 64; Resp 13; Pulse Ox 100% ; bp 20:20 BP 132 / 77; Pulse 66; Resp 17; Pulse Ox 98% on R/A; ke1 13:18 Body Mass Index 21.46 (62.14 kg, 170.18 cm) vg1 NIH Stroke Scale Scores: 13:30 NIHSS Score: 1 jl7 16:04 NIHSS Score: 0 oralia 19:00 NIHSS Score: 0 ke1 ED Course: 13:09 Patient arrived in ED. am2 13:20 Triage completed. vg1 13:20 Arm band placed on. vg1 13:35 Initial lab(s) drawn, by ED staff, sent to lab. EKG done, by ED staff, reviewed by clyde Gonzalez MD. 13:38 Inserted saline lock: 20 gauge in right antecubital area, using aseptic technique. ld1 Blood collected. 13:40 Gt Gonzalez MD is Attending Physician. oralia 13:58 Dayanara Chávez, RN is Primary Nurse. [facility] 13:59 Primary Nurse role handed off by Dayanara Chávez, MARICRUZ bp 13:59 Herman Quinones, MARICRUZ is Primary Nurse. bp 14:42 Patient has correct armband on for positive identification. Bed in low position. Call bp light in reach. Side rails up X2. 16:03 Xu Cowan MD is Hospitalizing Provider. oralia 17:46 Umesh Ortiz MD is Referral Physician. oralia 17:49 César Garcia MD is Hospitalizing Provider. oralia 17:58 Xu Cowan MD is Hospitalizing Provider. la1 18:05 Hospitalizing Provider role handed off by Xu Cowan MD la1 18:05 César Garcia MD is Hospitalizing Provider. la1 Administered Medications: 14:15 Drug: NS 0.9% 1000 ml Route: IV; Rate: 1 bolus; Site: left antecubital; bp 14:15 Drug: foLIC Acid 1 mg Route: IVPB; Site: left antecubital; bp 14:15 Drug: hydrALAZINE 10 mg Route: PO; bp 14:57 Follow up: Response: No adverse reaction bp 14:15 Drug: hydrALAZINE 5 mg Route: IVP; Site: left antecubital; bp 14:57 Follow up: Response: No adverse reaction bp 14:15 Drug: Aspirin Chewable Tablet 162 mg Route: PO; bp 14:57 Follow up: Response: No adverse reaction bp 16:34 Drug: PlaVIX (clopidogrel) 75 mg Route: PO; bp 16:34 Drug: Lisinopril 10 mg Route: PO; bp 16:34 Drug: Lipitor (atorvastatin) 40 mg Route: PO; bp Outcome: 16:04 Decision to Hospitalize by Provider. oralia 17:46 Discharge ordered by MD. oralia 17:51 Decision to Hospitalize by Provider. oralia 20:47 Patient left the ED. ke1 NIH Stroke Scale - NIH Stroke Score Date: 12/25/2021 Time: 13:30 Total Score = 1 1a. Level of Consciousness (LOC) - 0(Alert) 1b. Level of Consciousness (LOC) (Month \\T\\ Age) - 0(Both) 1c. LOC Commands (Open \\T\\ Closes Eyes/Esthetician Facialist) - 0(Both) 2. Best Gaze (Lateral Gaze Paresis) - 0(Normal) 3. Visual Field Loss - 0(No visual loss) 4. Facial Palsy - 0(Normal) 5a. Left Arm: Motor (10-second hold) - 0(No drift) 5b. Right Arm: Motor (10-second hold) - 0(No drift) 6a. Left Leg: Motor (5-second hold - always test supine) - 0(No drift) 6b. Right Leg: Motor (5-second hold - always test supine) - 0(No drift) 7. Limb Ataxia (finger/nose \\T\\ heel/eden - test with eyes open) - 0(Absent) 8. Sensory Loss (pinprick arms/legs/face) - 1(Mild to moderate loss) 9. Best Language: Aphasia (description/naming/reading) - 0(No aphasia) 10. Dysarthria (speech clarity - read or repeat words) - 0(Normal) 11. Extinction and Inattention (visual/tactile/auditory/spatial/personal) - 0(No abnormality) Initials: jl7 NIH Stroke Scale - NIH Stroke Score Date: 12/25/2021 Time: 16:04 Total Score = 0 1a. Level of Consciousness (LOC) - 0(Alert) 1b. Level of Consciousness (LOC) (Month \\T\\ Age) - 0(Both) 1c. LOC Commands (Open \\T\\ Closes Eyes/Esthetician Facialist) - 0(Both) 2. Best Gaze (Lateral Gaze Paresis) - 0(Normal) 3. Visual Field Loss - 0(No visual loss) 4. Facial Palsy - 0(Normal) 5a. Left Arm: Motor (10-second hold) - 0(No drift) 5b. Right Arm: Motor (10-second hold) - 0(No drift) 6a. Left Leg: Motor (5-second hold - always test supine) - 0(No drift) 6b. Right Leg: Motor (5-second hold - always test supine) - 0(No drift) 7. Limb Ataxia (finger/nose \\T\\ heel/eden - test with eyes open) - 0(Absent) 8. Sensory Loss (pinprick arms/legs/face) - 0(Normal) 9. Best Language: Aphasia (description/naming/reading) - 0(No aphasia) 10. Dysarthria (speech clarity - read or repeat words) - 0(Normal) 11. Extinction and Inattention (visual/tactile/auditory/spatial/personal) - 0(No abnormality) Initials: [facility] NIH Stroke Scale - NIH Stroke Score Date: 12/25/2021 Time: 19:00 Total Score = 0 1a. Level of Consciousness (LOC) - 0(Alert) 1b. Level of Consciousness (LOC) (Month \\T\\ Age) - 0(Both) 1c. LOC Commands (Open \\T\\ Closes Eyes/Esthetician Facialist) - 0(Both) 2. Best Gaze (Lateral Gaze Paresis) - 0(Normal) 3. Visual Field Loss - 0(No visual loss) 4. Facial Palsy - 0(Normal) 5a. Left Arm: Motor (10-second hold) - 0(No drift) 5b. Right Arm: Motor (10-second hold) - 0(No drift) 6a. Left Leg: Motor (5-second hold - always test supine) - 0(No drift) 6b. Right Leg: Motor (5-second hold - always test supine) - 0(No drift) 7. Limb Ataxia (finger/nose \\T\\ heel/eden - test with eyes open) - 0(Absent) 8. Sensory Loss (pinprick arms/legs/face) - 0(Normal) 9. Best Language: Aphasia (description/naming/reading) - 0(No aphasia) 10. Dysarthria (speech clarity - read or repeat words) - 0(Normal) 11. Extinction and Inattention (visual/tactile/auditory/spatial/personal) - 0(No abnormality) Initials: ke1 Signatures: Gt Gonzalez MD MD cha Attema, Tolu, BUILDING SERVICES COORDINATOR-C BUILDING SERVICES COORDINATOR-Cla1 Dayanara Chávez, RN RN jl7 Audrey Soria Brian, RN RN bp Ayesha Payne, RN RN vg1 Danielle Fung RN RN ld1 Thalia Gutierrez, RN RN ke1
--- NOTE | 2021-12-25 16:04 | EDPHYS ---
Physician Documentation [facility] Name: Galina Flannery Age: 66 yrs Sex: Female : 1955 Arrival Date: 12/25/2021 Time: 13:09 Bed 16 Private MD: DARIN Physician Gt Gonzalez HPI: 12/25 15:54 This 66 yrs old Female presents to ER via Wheelchair with complaints of High oralia Blood Pressure. 15:54 The patient has elevated blood pressure and discovered this at home, with a home oralia device. Onset: The symptoms/episode began/occurred 6 day(s) ago. Historical: - Allergies: 13:20 BACITRACIN; vg1 - PMHx: 13:20 Hypertension; vg1 - Immunization history:: Client reports receiving the 2nd dose of the Covid vaccine. - Social history:: Smoking status: Patient/guardian denies using tobacco, the patient reports quitting approximately 16 years ago. ROS: 15:55 Constitutional: Negative for fever, chills, and weight loss, Eyes: Negative for injury, oralia pain, redness, and discharge, ENT: Negative for injury, pain, and discharge, Neck: Negative for injury, pain, and swelling, Cardiovascular: Negative for chest pain, palpitations, and edema, Respiratory: Negative for shortness of breath, cough, wheezing, and pleuritic chest pain, Abdomen/GI: Negative for abdominal pain, nausea, vomiting, diarrhea, and constipation, Back: Negative for injury and pain, : Negative for injury, bleeding, discharge, and swelling, MS/Extremity: Negative for injury and deformity, Skin: Negative for injury, rash, and discoloration, Psych: Negative for depression, anxiety, suicide ideation, homicidal ideation, and hallucinations, Allergy/Immunology: Negative for hives, rash, and allergies, Endocrine: Negative for neck swelling, polydipsia, polyuria, polyphagia, and marked weight changes, Hematologic/Lymphatic: Negative for swollen nodes, abnormal bleeding, and unusual bruising. 15:55 Neuro: Positive for headache, weakness, of the left arm. Exam: 15:55 Radiologist reports: NAD oralia 15:55 Constitutional: This is a well developed, well nourished patient who is awake, alert, and in no acute distress. Head/Face: Normocephalic, atraumatic. Eyes: Pupils equal round and reactive to light, extra-ocular motions intact. Lids and lashes normal. Conjunctiva and sclera are non-icteric and not injected. Cornea within normal limits. Periorbital areas with no swelling, redness, or edema. ENT: Nares patent. No nasal discharge, no septal abnormalities noted. Tympanic membranes are normal and external auditory canals are clear. Oropharynx with no redness, swelling, or masses, exudates, or evidence of obstruction, uvula midline. Mucous membranes moist. Neck: Trachea midline, no thyromegaly or masses palpated, and no cervical lymphadenopathy. Supple, full range of motion without nuchal rigidity, or vertebral point tenderness. No Meningismus. Chest/axilla: Normal chest wall appearance and motion. Nontender with no deformity. No lesions are appreciated. Cardiovascular: Regular rate and rhythm with a normal S1 and S2. No gallops, murmurs, or rubs. Normal PMI, no JVD. No pulse deficits. Respiratory: Lungs have equal breath sounds bilaterally, clear to auscultation and percussion. No rales, rhonchi or wheezes noted. No increased work of breathing, no retractions or nasal flaring. Abdomen/GI: Soft, non-tender, with normal bowel sounds. No distension or tympany. No guarding or rebound. No evidence of tenderness throughout. Back: No spinal tenderness. No costovertebral tenderness. Full range of motion. Female : Normal external genitalia. Skin: Warm, dry with normal turgor. Normal color with no rashes, no lesions, and no evidence of cellulitis. MS/ Extremity: Pulses equal, no cyanosis. Neurovascular intact. Full, normal range of motion. Neuro: Awake and alert, GCS 15, oriented to person, place, time, and situation. Cranial nerves II-XII grossly intact. Motor strength 5/5 in all extremities. Sensory grossly intact. Cerebellar exam normal. Normal gait. Psych: Awake, alert, with orientation to person, place and time. Behavior, mood, and affect are within normal limits. 15:55 ECG was reviewed by the Attending Physician. Vital Signs: 13:18 BP 181 / 118; Pulse 58; Resp 17; Temp 99.0(TE); Pulse Ox 100% on R/A; Weight 62.14 kg; vg1 Height 5 ft. 7 in. (170.18 cm); Pain 6/10; 14:42 BP 157 / 84; Pulse 62; Resp 15; Pulse Ox 100% ; bp 16:02 BP 129 / 74; Pulse 64; Resp 13; Pulse Ox 100% ; bp 20:20 BP 132 / 77; Pulse 66; Resp 17; Pulse Ox 98% on R/A; ke1 13:18 Body Mass Index 21.46 (62.14 kg, 170.18 cm) vg1 NIH Stroke Scale Scores: 13:30 NIHSS Score: 1 jl7 16:04 NIHSS Score: 0 oralia 19:00 NIHSS Score: 0 ke1 MDM: 13:40 Patient medically screened. oralia 15:59 Differential diagnosis: CVA, TIA, hypertensive crisis, Malignant HTN, CVA, oralia intracerebral hemorrhage. Data reviewed: vital signs, nurses notes, lab test result(s), EKG, radiologic studies, CT scan, plain films. Data interpreted: playground monitor: rate is 62 beats/min, rhythm is normal sinus rhythm, Pulse oximetry: on room air is 62 %. Test interpretation: by ED physician or midlevel provider: ECG, plain radiologic studies. Counseling: I had a detailed discussion with the patient and/or guardian regarding: the historical points, exam findings, and any diagnostic results supporting the discharge/admit diagnosis, the presence of at least one elevated blood pressure reading (>120/80) during this emergency department visit, lab results, radiology results, the need for further work-up and treatment in the hospital. ED course: FOR TWO WEEKS PT HAS BEEN HAVING BERGMAN, HTN, LEFT ARM HEAVY, BETTER AT TIMES , THIS MORNING AWOKE WITH LEFT ARM HEAVY, WORSE AT 9 AM. 12/25 13:38 Order name: Basic Metabolic Panel ld1 12/25 13:38 Order name: CBC with Diff ld1 12/25 13:38 Order name: Protime (+inr) ld1 12/25 13:38 Order name: Ptt, Activated ld1 12/25 13:47 Order name: CBC with Automated Diff; Complete Time: 15:52 EDMS 12/25 13:47 Order name: Glucose, Ancillary Testing; Complete Time: 15:52 EDMS 12/25 13:50 Order name: SARS RAPID oralia 12/25 13:51 Order name: PTT, Activated Partial Thromb; Complete Time: 15:52 EDMS 12/25 13:52 Order name: Protime (+INR); Complete Time: 15:52 EDLA 12/25 13:57 Order name: Basic Metabolic Panel; Complete Time: 15:52 EDLA 12/25 14:49 Order name: Urine Dipstick-Ancillary; Complete Time: 15:52 EDLA 12/25 15:07 Order name: SARS-COV-2 Antigen Rapid; Complete Time: 15:53 EDLA 12/25 15:58 Order name: Lipid Profile [facility] 12/25 17:47 Order name: Lipid Profile; Complete Time: 17:54 EDLA 12/25 13:38 Order name: EKG; Complete Time: 13:38 ld 12/25 13:50 Order name: CT Stroke Brain w/o Contrast [facility] 12/25 14:03 Order name: CT; Complete Time: 15:53 EDLA 12/25 15:54 Order name: CT Head Angio [facility] 12/25 15:54 Order name: CT Neck Angio [facility] 12/25 16:38 Order name: CT; Complete Time: 17:43 EDLA 12/25 16:42 Order name: CT; Complete Time: 17:43 EDLA 12/25 19:12 Order name: Thyroid Stimulating Hormone [facility] 12/25 13:38 Order name: Accucheck; Complete Time: 13:38 ld1 12/25 13:38 Order name: Cardiac monitoring; Complete Time: 13:38 1 12/25 13:38 Order name: EKG - Nurse/Tech; Complete Time: 13:38 [facility] 12/25 13:38 Order name: IV Saline Lock; Complete Time: 13:38 1 12/25 13:38 Order name: Labs collected and sent; Complete Time: 13:38 1 12/25 13:38 Order name: NPO; Complete Time: 13:38 1 12/25 13:38 Order name: O2 Per Protocol; Complete Time: 13:38 ld1 12/25 13:38 Order name: O2 Sat Monitoring; Complete Time: 13:38 ld1 12/25 13:38 Order name: Stroke Swallow Screen; Complete Time: 13:38 [facility] 12/25 13:50 Order name: Urine Dipstick-Ancillary (obtain specimen); Complete Time: 14:56 oralia EC:55 Rate is 57 beats/min. Rhythm is regular. QRS Malcolm is Normal. MA interval is normal. QRS oralia interval is normal. QT interval is normal. No Q waves. T waves are Normal. No ST changes noted. Clinical impression: Sinus bradycardia and No evidence of ischemia. Interpreted by me. Reviewed by me. Administered Medications: 14:15 Drug: NS 0.9% 1000 ml Route: IV; Rate: 1 bolus; Site: left antecubital; bp 14:15 Drug: foLIC Acid 1 mg Route: IVPB; Site: left antecubital; bp 14:15 Drug: hydrALAZINE 10 mg Route: PO; bp 14:57 Follow up: Response: No adverse reaction bp 14:15 Drug: hydrALAZINE 5 mg Route: IVP; Site: left antecubital; bp 14:57 Follow up: Response: No adverse reaction bp 14:15 Drug: Aspirin Chewable Tablet 162 mg Route: PO; bp 14:57 Follow up: Response: No adverse reaction bp 16:34 Drug: PlaVIX (clopidogrel) 75 mg Route: PO; bp 16:34 Drug: Lisinopril 10 mg Route: PO; bp 16:34 Drug: Lipitor (atorvastatin) 40 mg Route: PO; bp Disposition Summary: 12/25/21 17:51 Hospitalization Ordered Hospitalization Status: Observation(12/25/21 17:51) oralia Location: Telemetry/MedSurg (observation)(12/25/21 17:51) oralia Condition: Stable(12/25/21 17:51) oralia Problem: new(12/25/21 17:51) oralia Symptoms: have improved(12/25/21 17:51) oralia Bed/Room Type: Standard(12/25/21 17:51) oralia Provider: César Garcia(12/25/21 18:05) kwaku Room Assignment: 409(12/25/21 19:19) eb1 Diagnosis - Essential (primary) hypertension(12/25/21 17:51) oralia - Occlusion and stenosis of bilateral carotid arteries(12/25/21 17:51) oralia - Weakness(12/25/21 17:51) oralia - Transient cerebral ischemic attack, unspecified(12/25/21 17:51) oralia Forms: - Medication Reconciliation Form oralia - SBAR form oralia NIH Stroke Scale - NIH Stroke Score Date: 12/25/2021 Time: 13:30 Total Score = 1 1a. Level of Consciousness (LOC) - 0(Alert) 1b. Level of Consciousness (LOC) (Month \T\ Age) - 0(Both) 1c. LOC Commands (Open \T\ Closes Eyes/Specimen Accessioner) - 0(Both) 2. Best Gaze (Lateral Gaze Paresis) - 0(Normal) 3. Visual Field Loss - 0(No visual loss) 4. Facial Palsy - 0(Normal) 5a. Left Arm: Motor (10-second hold) - 0(No drift) 5b. Right Arm: Motor (10-second hold) - 0(No drift) 6a. Left Leg: Motor (5-second hold - always test supine) - 0(No drift) 6b. Right Leg: Motor (5-second hold - always test supine) - 0(No drift) 7. Limb Ataxia (finger/nose \T\ heel/eden - test with eyes open) - 0(Absent) 8. Sensory Loss (pinprick arms/legs/face) - 1(Mild to moderate loss) 9. Best Language: Aphasia (description/naming/reading) - 0(No aphasia) 10. Dysarthria (speech clarity - read or repeat words) - 0(Normal) 11. Extinction and Inattention (visual/tactile/auditory/spatial/personal) - 0(No abnormality) Initials: jl7 NIH Stroke Scale - NIH Stroke Score Date: 12/25/2021 Time: 16:04 Total Score = 0 1a. Level of Consciousness (LOC) - 0(Alert) 1b. Level of Consciousness (LOC) (Month \T\ Age) - 0(Both) 1c. LOC Commands (Open \T\ Closes Eyes/Specimen Accessioner) - 0(Both) 2. Best Gaze (Lateral Gaze Paresis) - 0(Normal) 3. Visual Field Loss - 0(No visual loss) 4. Facial Palsy - 0(Normal) 5a. Left Arm: Motor (10-second hold) - 0(No drift) 5b. Right Arm: Motor (10-second hold) - 0(No drift) 6a. Left Leg: Motor (5-second hold - always test supine) - 0(No drift) 6b. Right Leg: Motor (5-second hold - always test supine) - 0(No drift) 7. Limb Ataxia (finger/nose \T\ heel/eden - test with eyes open) - 0(Absent) 8. Sensory Loss (pinprick arms/legs/face) - 0(Normal) 9. Best Language: Aphasia (description/naming/reading) - 0(No aphasia) 10. Dysarthria (speech clarity - read or repeat words) - 0(Normal) 11. Extinction and Inattention (visual/tactile/auditory/spatial/personal) - 0(No abnormality) Initials: oralia NIH Stroke Scale - NIH Stroke Score Date: 12/25/2021 Time: 19:00 Total Score = 0 1a. Level of Consciousness (LOC) - 0(Alert) 1b. Level of Consciousness (LOC) (Month \T\ Age) - 0(Both) 1c. LOC Commands (Open \T\ Closes Eyes/Specimen Accessioner) - 0(Both) 2. Best Gaze (Lateral Gaze Paresis) - 0(Normal) 3. Visual Field Loss - 0(No visual loss) 4. Facial Palsy - 0(Normal) 5a. Left Arm: Motor (10-second hold) - 0(No drift) 5b. Right Arm: Motor (10-second hold) - 0(No drift) 6a. Left Leg: Motor (5-second hold - always test supine) - 0(No drift) 6b. Right Leg: Motor (5-second hold - always test supine) - 0(No drift) 7. Limb Ataxia (finger/nose \T\ heel/eden - test with eyes open) - 0(Absent) 8. Sensory Loss (pinprick arms/legs/face) - 0(Normal) 9. Best Language: Aphasia (description/naming/reading) - 0(No aphasia) 10. Dysarthria (speech clarity - read or repeat words) - 0(Normal) 11. Extinction and Inattention (visual/tactile/auditory/spatial/personal) - 0(No abnormality) Initials: ke1 Signatures: Dispatcher [employer] EDGt Gonzalez MD MD cha Waters, Shelly, FNP-C GLASS MOLD REPAIRER-Csnw Tolu Villa FNP-C GLASS MOLD REPAIRER-Cla1 Herman Quinones, RN RN bp Julieth Mitchell, RN RN eb1 Ayesha Payne, RN RN vg1 Danielle Fung, RN RN ld1 Corrections: (The following items were deleted from the chart) 17:44 16:04 [facility] 17:44 16:04 Xu Cowan oralia oralia 17:44 16:04 Telemetry/MedSurg (observation) oralia oralia 17:44 16:04 Stable oralia oralia 17:44 16:04 new oralia oralia 17:44 16:04 have improved oralia oralia 17:44 16:04 Standard oralia oralia 17:44 16:04 oralia oralia 17:44 16:04 Essential (primary) hypertension oralia oralia 17:44 16:04 Transient cerebral ischemic attack, unspecified - LEFT ARM WEAKNESS oralia oralia 17:48 17:46 Home oralia oralia 17:48 17:46 new oralia oralia 17:48 17:46 have improved oralia oralia 17:48 17:46 Stable oralia oralia 17:48 17:46 Weakness oralia oralia 17:48 17:46 Occlusion and stenosis of bilateral carotid arteries - LESS THAN 50% oralia oralia 17:48 17:46 Essential (primary) hypertension oralia oralia 17:58 17:51 César Garcia oralia la1 18:05 17:58 Xu Cowan la1 la1 19:19 17:51 oralia eb
[2021-12-25] MEDS ORDERED: CLOPIDOGREL 75 MG TABLET ONE (16:13)
[2021-12-25] MEDS ORDERED: lisinopriL 10 MG TAB ONE (16:14)
[2021-12-25] MEDS ORDERED: ATORVASTATIN 20 MG TAB ONE (16:14)
--- NOTE | 2021-12-25 16:37 | RAD REPORT ---
EXAM DESCRIPTION: CT - Head angio - 12/25/2021 4:30 pm CLINICAL HISTORY: Neuro deficit, acute, stroke suspected CVA symptomology COMPARISON: Ct Stroke Brain Wo Cont dated 12/25/2021; Head Brain Wo Cont dated 12/22/2021 TECHNIQUE: CT angiography of the head was performed with MIPs. All CT scans are performed using dose optimization technique as appropriate and may include automated exposure control or mA/KV adjustment according to patient size. FINDINGS: No evidence of aneurysm is detected. No flow-limiting stenosis or vascular malformation id entified. Antegrade flow is seen in the vertebral arteries. The vertebral arteries are codominant. The vertebro basilar system is diminutive due to bilateral origin of PCOM, normal variant The visualized dural venous sinuses are patent. IMPRESSION: No significant flow abnormality is detected.
--- NOTE | 2021-12-25 16:41 | RAD REPORT ---
EXAM DESCRIPTION: CT - Neck Angio - 12/25/2021 4:30 pm CLINICAL HISTORY: Neuro deficit, acute, stroke suspected Headache, drowsiness, CVA symptomology COMPARISON: No comparisons TECHNIQUE: CT angiography of the neck vessels was performed with MIPs. All CT scans are performed using dose optimization technique as appropriate and may include automated exposure control or mA/KV adjustment according to patient size. FINDINGS: A left aortic arch is identified with normal three vessel configuration of the great vesse ls. No significant flow abnormality is seen of the common carotid bilaterally. Mild hard plaquing is seen in both carotid bulbs. Narrowing of both carotid bulbs is less than 50% ba sed on NASCET criteria. Normal flow is seen within both vertebral arteries. IMPRESSION: Mild atherosclerotic hard plaque is seen in both carotid bulbs without significant steno sis present.
--- NOTE | 2021-12-25 17:59 | P.HP ---
Certification for Inpatient Patient admitted to: Observation With expected LOS: <2 Midnights Patient will require the following post-hospital care: None Practitioner: I am a practitioner with admitting privileges, knowledge of patient current condition, hospital course, and medical plan of care. Services: Services provided to patient in accordance with Admission requirements found in Title 42 Section 412.3 of the Code of Federal Regulations Patient History Date of Service: 12/25/21 Primary Care Provider: Opal Key NP Reason for admission: Concern for TIA History of Present Illness: Ms. Galina Flannery is a pleasant 66 year old female who has a past medical history of hypertension who presents to the [facility] Emergency Department for left arm numbness and double vision. She reports that, earlier today, she developed sudden onset left arm numbness, mental fog, and double vision. She states that this has been occurring intermittently over the last few weeks. However, today, she felt that the episode was worse. She denies any other symptoms and states that her symptoms have completely resolved. She denies any obvious inciting or alleviating factors. She has not tried taking any medications for her symptoms. On review of systems, she denies any fevers, chills, headaches, dizziness, syncope, weakness, chest pain, palpitations, shortness of breath, wheezing, cough, abdominal pain, nausea/vomiting, diarrhea, constipation, hematochezia, melena, dysuria, hematuria, myalgia, or any other symptoms. She presented to the Emergency Department for further evaluation. Upon presentation, her vital signs were notable for a blood pressure up to 181/111. Her laboratory studies were stable. EKG revealed sinus rhythm without STEMI criteria. CT head revealed, "no acute intracranial abnormality." CT head angiogram revealed, "no significant flow abnormality is detected." CT neck angiogram revealed, "mild atherosclerotic hard plaque is seen in both carotid bulbs without significant stenosis present." In the Emergency Department, she was given aspirin, hydralazine, folic acid, and 1 L Normal Saline. She was admitted to the General Internal Medicine service for further evaluation. Allergies bacitracin Allergy (Verified 12/25/21 19:16) Hives/Rash Home medications list reviewed: Yes Home Medications: atenoloL [Tenormin] 50 mg PO DAILY 12/25/21 - Past Medical/Surgical History Diabetic: No -: Hypertension -: Bilateral Varicose Vein Surgery - November 2021 - Family History Family History: Reviewed- Non-Contributory - Social History Smoking Status: Former smoker Alcohol use: No CD- Drugs: No Caffeine use: No Review of Systems 10-point ROS is otherwise unremarkable General: Unremarkable Eyes: Vision Change (double vision) ENT: Unremarkable Respiratory: Unremarkable Cardiovascular: Unremarkable Gastrointestinal: Unremarkable Genitourinary: Unremarkable Musculoskeletal: Unremarkable Integumentary: Unremarkable Neurological: Numbness (left arm), Confusion ("mental fog"), As per HPI Physical Examination - Vital Signs Temperature: 99.0 F Blood Pressure: 129/74 Pulse: 64 Respirations: 13 Pulse Ox (%): 100 - Physical Exam General: Alert, In no apparent distress, Oriented x3 HEENT: Atraumatic, PERRLA, Mucous membr. moist/pink Neck: Supple, JVD not distended Respiratory: Clear to auscultation bilaterally, Normal air movement Cardiovascular: No edema, Regular rate/rhythm, Normal S1 S2, No gallops, No rubs, No murmurs Capillary refill: <2 Seconds Gastrointestinal: Normal bowel sounds, Soft and benign, Non-distended, No tende rness, No rebound, No guarding Musculoskeletal: No clubbing Integumentary: No rashes Neurological: Normal speech, Normal strength at 5/5 x4 extr, Normal tone, Sensation intact, Cranial nerves 3-12 intact, Normal reflexes 2+, Normal affect - Studies Laboratory Data (last 24 hrs) 12/25/21 13:36: PT 11.7, INR 1.06, APTT 29.9 12/25/21 13:36: WBC 8.10, Hgb 13.3, Hct 38.8, Plt Count 315 12/25/21 13:36: Sodium 131 L, Potassium 4.0, BUN 6 L, Creatinine 0.65, Glucose 113 H 12/25/21 13:30: Triglycerides 92, Cholesterol 193, HDL Cholesterol 87 H, Cholesterol/HDL Ratio 2.22 Assessment and Plan - Plan NIH Stroke Scale 1a. Level of consciousness: 0 - Alert; keenly responsive 1b. LOC questions: 0 - Both questions right 1c. LOC commands: 0 - Performs both tasks 2. Best Gaze: 0 - Normal 3. Visual: 0 - No visual loss 4. Facial Palsy: 0 - Normal symmetry 5a. Motor left arm: 0 - No drift for 10 seconds 5b. Motor right arm: 0 - No drift for 10 seconds 6a. Motor left le - No drift for 5 seconds 6b. Motor right le - No drift for 5 seconds 7. Limb ataxia: 0 - No ataxia 8. Sensory: 0 - Normal; no sensory loss 9. Best Language: 0 - Normal; no aphasia 10. Dysarthria: 0 - Normal 11. Extinction and Inattention: 0 - No abnormality 12. Distal motor function: 0 - No abnormality Total Score: 0 # Concern for Transient Ischemic Attack # Mild Bilateral Carotid Artery Stenosis # Hypertension She presented with symptoms of left arm numbness, diplopia, and "mental fog," which have now all resolved. - Consulted Neurology and spoke with Dr. Ortiz - recommendations appreciated - Admit under observation status - No neurologic deficits on my exam - NIHSS = 0 - Allow permissive hypertension for tonight - Hold home atenolol - q4hr neurochecks - Ordered MR brain - Ordered TTE - PT evaluation requested - Ordered risk profile: - Hgb A1c = pending - Lipid panel = TC 193, TG 92, LDL 88, HDL 87 - TSH = 3.140 - Started aspirin, atorvastatin, folic acid, clopidogrel per Neuro recs César Garcia M.D. Discharge Plan: Home Plan to discharge in: 24 Hours - Advance Directives Does patient have a Living Will: No Does patient have a Durable POA for Healthcare: No - Code Status/Comfort Care Code Status Assessed: Yes Code Status: Full Code
[2021-12-25] MEDS: FOLIC ACID 1 MG TABLET PO SCH (18:00)
[2021-12-25] MEDS: CLOPIDOGREL 75 MG TABLET PO SCH (18:00)
[2021-12-25] MEDS ORDERED: ATORVASTATIN 40 MG TAB PO SCH (21:00)
[2021-12-25 21:15] VITALS: O2SAT 98
[2021-12-26 03:20] VITALS: BMI 21.4
[2021-12-26] MEDS: FOLIC ACID 1 MG TABLET PO SCH (08:07)
[2021-12-26] MEDS: CLOPIDOGREL 75 MG TABLET PO SCH (08:07)
[2021-12-26] MEDS ORDERED: ENOXAPARIN 40 MG/0.4 ML SQ SCH (09:00)
[2021-12-26] MEDS ORDERED: ASPIRIN 81 MG CHEWABLE TABLET PO SCH (09:00)
--- NOTE | 2021-12-26 12:17 | RAD REPORT ---
EXAM DESCRIPTION: MRI - Brain W/Wo Cont - 12/26/2021 11:29 am CLINICAL HISTORY: Rule Out Stroke Headache, hypertension, CVA symptomology COMPARISON: Head angio dated 12/25/2021 TECHNIQUE: Multi-sequence, multiplanar MR imaging of the brain was performed with contrast. FINDINGS: No intracranial hemorrhage, hydrocephalus, or extra-axial fluid collection.Mild generalize d brain atrophy. No edema or shift of midline structures. No intracranial mass. DWI is negative for a cute CVA. The midline structures are normally formed. Mastoid air cells and paranasal sinuses are clear. Post-contrast images show no abnormal enhancement to suggest tumor or infection. IMPRESSION: Negative for acute CVA or other acute intracranial finding. No pathologic post-contrast enhancement suspected.
[2021-12-26 13:02] VITALS: BP 191/87; TEMP 99.7
--- NOTE | 2021-12-26 14:13 | EKG ---
Test Date: 2021-12-25 Test Time: 13:29:31 [employer] Manager: EBONY MEASUREMENT RESULTS: Intervals: Rate: 57 ND: 182 QRSD: 76 QT: 430 QTc: 418 [place]: P: 33 ND: 182 QRS: 76 T: 67 INTERPRETIVE STATEMENTS: Sinus bradycardia Otherwise normal ECG Compared to ECG 12/22/2021 20:15:54 Sinus arrhythmia no longer present Electronically Signed On 12-26-21 14:12:01 CDT by Jozef [place]
--- NOTE | 2021-12-27 06:58 | ECHO ---
HEIGHT: 5 ft 7 in WEIGHT: 137 lb 0 oz DATE OF STUDY: 12/26/[address]: César Garcia MD 2-DIMENSIONAL: YES M.MODE: YES DOPPLER: YES COLOR FLOW: YES TDS: NO PORTABLE: YES DEFINITY: NO BUBBLE STUDY: NO DIAGNOSIS: STROKE EVALUATION CARDIAC HISTORY: CATHERIZATION: SURGERY: PROSTHETIC VALVE: PACEMAKER: MEASUREMENTS (cm) DIASTOLIC (NORMALS) SYSTOLIC (NORMALS) IVSd 0.9 (0.6-1.2) LA Diam 3.3 (1.9-4.0) LVEF 64% LVIDd 4.2 (3.5-5.7) LVIDs 2.8 (2.0-3.5) %FS 35% LVPWd 1.0 (0.6-1.2) Ao Diam 2.8 (2.0-3.7) 2 DIMENSIONAL ASSESSMENT: RIGHT ATRIUM: NORMAL LEFT ATRIUM: NORMAL RIGHT VENTRICLE: NORMAL LEFT VENTRICLE: NORMAL TRICUSPID VALVE: MILD TRICUSPID REGURGITATION MITRAL VALVE: MILD MITRAL REGURGITATION PULMONIC VALVE: NORMAL AORTIC VALVE: NORMAL PERICARDIAL EFFUSION: NONE AORTIC ROOT: NORMAL LEFT VENTRICULAR WALL MOTION: NORMAL. DOPPLER/COLOR FLOW: SEE BELOW. COMMENTS: NORMAL LEFT VENTRICULAR EJECTION FRACTION 60-65%. NORMAL WALL MOTION. MILD MITRAL REGURGITATION. MILD TRICUSPID REGURGITATION. TECHNOLOGIST: LIVIA CORDERO
--- NOTE | 2021-12-27 10:34 | CON ---
Reason For Consultation: Consultation called because of possible TIA. History Of Present Illness: Ms. Flannery is a 66-year-old right-handed patient with poorly controlled hypertension, who comes to [facility] with intermittent left arm numbness, double vision, and intermittent confusion. Symptoms have been present for more than a week. She was seen initially at [facility], had a negative workup, and was discharged and came back to [facility] yesterday, on the , and was admitted for stroke workup. At that time, her symptoms had actually resolved completely when she was admitted. Her head CT scan showed no acute ischemic or hemorrhagic findings. Her CT angiogram of the head and neck showed no significant abnormalities. Subsequent MRI of the brain today ruled out the presence of an acute ischemic or hemorrhagic stroke. There was mil d generalized brain atrophy. Laboratory Studies: Showed a normal complete blood count with differential. Coagulation panel was n ormal. Chemistries show slightly low sodium 131, slightly low chloride of 96, glucose 113, her LDL c holesterol 88, HDL cholesterol 87, TSH 3.14. Hemoglobin A1c was 5.2. Urinalysis showed trace lysed blood, otherwise unremarkable. COVID-19 testing was negative. Past Medical History: As noted. Surgical History: Bilateral varicose vein surgery, which was actually done a week ago and the patien t did have JESSICA holes placed on the lower extremities and did have some significant paresthesias in th e lower extremity, which did improve with removal of those JESSICA hose. Allergies: BACITRACIN. Medications: At home, atenolol 50 mg daily. Family History: Noncontributory. Social History: Smoked up to about 2 years ago. No alcohol or IV drug use. Review of Systems: Aside from mentioned above, no recent fevers or chills, myalgias, arthralgias, rash, weight change, o r psychiatric issues. Physical Examination: Vital Signs: Blood pressure 191/87, pulse 69, respiratory rate 18, temperature 99.7, oxygen saturati on 97% on room air. Weight 137 pounds, height 5 feet 7 inches, BMI 21.5. General: Ms. Flannery is resting comfortably in bed. Her is at the bedside. HEENT: Normocephalic, atraumatic. Sclerae anicteric. Oropharynx is pink and moist. Neck: Supple. Chest: Clear. Heart: Regular. Extremities: Show no clubbing, cyanosis, or edema. Neurologic: She is alert and oriented to situation, place, and person. She follows commands appropr iately. Cranial nerves 2 through 12 are intact. Motor examination, upper and lower extremities inta ct. No sensory deficits. Again, no motor deficits. Coordination intact. Reflexes symmetric. Gait intact. Assessment: Ms. Flannery is a 66-year-old patient, who possibly has a transient ischemic attack, like ly related to very uncontrolled hypertension. She is now placed on aspirin, Plavix, folic acid, and statin. She may be discharged home with those medications and follow up in Dr. Ortiz's office. Plan: As indicated continue aspirin 81 mg daily, Lipitor 40 mg at bedtime, Plavix 75 mg daily, folic acid 1 mg daily, and work on lowering blood pressure over the next week to 2 weeks to systolics arou nd 120s to 130s. Follow up with Dr. Ortiz within a month. NARCISO/SANDRA Voice ID: [id number] Report ID: [id number]
== END 2021-12-26 16:06 | disposition home or self-care (01) ==
LOC: ER 13:07 → ERHOLD 17:54 → 4TH 20:23
PROVIDERS: ADMIT Internal Medicine; ATTEND Hospitalist
DX: I10 Essential (primary) hypertension (principal); I65.23 Occlusion and stenosis of bilateral carotid arteries; R29.701 NIHSS score 1; Z88.1 Allergy status to other antibiotic agents; Z20.822 Contact with and (suspected) exposure to COVID-19; Z87.891 Personal history of nicotine dependence
CPT/HCPCS: 93005; 93306; 85025; 80048; 36415; 85610; 80061; 82947; 85730; 84443; 81003; 83036; 70496; 70498; 70450; 70553; 97112; 97161; 96375; 96374; 99284; 87811; Q9967; A9577; J0360; J1650; J7030; G0378 ×3